=== PATIENT | female | born 1955 | race Caucasian/White ===

== ENCOUNTER → 2023-04-23 08:51 | Outpatient (REF) | payer MEDICARE, SELFPAY | LOC: HWWDC 08:51 | PROVIDERS: ATTENDING PHYSICIAN Obstetrics & Gynecology; FAMILY PHYSICIAN Family Medicine | DX: Z12.31 Encounter for screening mammogram for malignant neoplasm of breast (principal) | CPT/HCPCS: 77063; 77067 ==

== ENCOUNTER → 2024-04-25 11:27 | Outpatient (REF) | payer MEDICARE, SELFPAY | LOC: HWRAD 11:27 | PROVIDERS: ATTENDING PHYSICIAN Obstetrics & Gynecology; FAMILY PHYSICIAN Family Medicine | DX: Z12.31 Encounter for screening mammogram for malignant neoplasm of breast (principal); Z78.0 Asymptomatic menopausal state | CPT/HCPCS: 77063; 77067; 77080 ==

== ENCOUNTER → 2024-06-13 12:07 | Outpatient (REF) | payer MEDICARE, SELFPAY | LOC: PAVMRI 12:07 | PROVIDERS: ATTENDING PHYSICIAN Physical Medicine & Rehabilitation; FAMILY PHYSICIAN Family Medicine | DX: M54.16 Radiculopathy, lumbar region (principal) | CPT/HCPCS: 72148 ==

== ENCOUNTER → 2024-08-17 09:36 | Outpatient (REF) | payer MEDICARE, SELFPAY | LOC: HWCARD 09:36 | PROVIDERS: ATTENDING PHYSICIAN Physical Medicine & Rehabilitation; FAMILY PHYSICIAN Family Medicine | DX: Z01.818 Encounter for other preprocedural examination (principal) | CPT/HCPCS: 93005 ==

== ENCOUNTER → 2024-12-14 08:08 | Outpatient (REF) | payer MEDICARE, SELFPAY | LOC: HWRCS 08:08 | PROVIDERS: ATTENDING PHYSICIAN Internal Medicine Cardiovascular Disease; FAMILY PHYSICIAN Family Medicine | DX: R94.31 Abnormal electrocardiogram [ECG] [EKG] (principal); R00.2 Palpitations | CPT/HCPCS: 93306 ==

== ENCOUNTER → 2024-12-20 07:13 | Outpatient (REF) | payer MEDICARE, SELFPAY | LOC: HWRCS 07:13 | PROVIDERS: ATTENDING PHYSICIAN Internal Medicine Cardiovascular Disease; FAMILY PHYSICIAN Family Medicine | DX: R94.31 Abnormal electrocardiogram [ECG] [EKG] (principal); R00.2 Palpitations; E78.2 Mixed hyperlipidemia | CPT/HCPCS: 78452; 93017; A9500; J2785 ==

== ENCOUNTER 2025-02-05 13:11 | Emergency (ER) | payer MEDICARE, SELFPAY ==
[2025-02-05 13:21] VITALS: BP 163/86
--- NOTE | 2025-02-05 15:25 | ED.GENMED ---
History of Present Illness
General
Chief Complaint: Heart Rate Problem
Source: patient
Exam Limitations: none
Time Seen by Provider: 02/05/25 15:01
History of Present Illness
History of Present Illness:
69-year-old female PAF follow Dr. Grimes not on any meds believes she went into A-fib early in the morning woke her from her sleep with palpitations no chest pain or shortness of breath no fever or chills symptoms have persisted through the day drink
socially not to excess
Past History
Past History
ED Past Medical History: Hypercholesterolemia and Other (One kidney)
ED Past Surgical History: Gynecological (Hysterectomy)
Social History
Tobacco: Former smoker
Alcohol: Occasional
Personal:
Living: with family
Phy Exam
Physical Exam
Physical Exam:
Physical Exam
General: no apparent distress, not acutely ill
Neck: No JVD
Heart: Tachycardic
Lungs: no acute respiratory distress. clear bilaterally
Neuro: alert and oriented. no focal neurological deficits
Skin: no rash
Psychiatric: well kept. interactive and cooperative
Extremities: no edema. no calf tenderness.
Course
Orders/Labs/Results
Orders:
Orders
02/05/25 13:12
EKG [Electrocardiogram (*1)] Urgent
Reason for Study: Palpitations
EKG- Treatment ONCE
02/05/25 15:13
IV Insert/Care/Rem.- Treatment PRN
Diltiazem HCl [Cardizem] 25 mg IV NOW STA
02/05/25 15:14
Diltiazem 125 mg/125 ml Nss [Cardizem] 125 mg in 125 ml IV NOW
Initial dose in mg/hr, then titrate:: 5
Titrate to keep:: Heart rate 80-100 bpm
Titrate by mg/hr:: 5 mg/hr
Frequency of titrations (minutes):: 15
Maximum dose in mg/hr:: 15
02/05/25 16:14
Complete Blood Count/With Diff Urgent
Comprehensive Metabolic Panel Urgent
Magnesium Urgent
TSH Urgent
02/05/25 17:17
Diltiazem Extended Release [Cardizem Cd] 120 mg PO NOW STA
02/05/25 17:17
Apixaban [Eliquis] 5 mg PO NOW STA
Abnormal Lab Results
02/05/25
16:14
MCH 31.9 H pg
(27.0-31.0)
MCHC 32.9 L g/dL
(33.0-37.0)
Absolute Monos (auto) 0.7 H 10^3/uL
(0.1-0.6)
Lymphocytes % 18.3 L %
(20.5-51.1)
Monocytes % 9.8 H %
(1.7-9.3)
Chloride 108 H mmol/L
(98-107)
BUN 25 H mg/dl
(7-17)
Glucose 100 H mg/dl
(70-99)
Calcium 10.3 H mg/dl
(8.4-10.2)
02/05/25 16:14
02/05/25 16:14
Vital Signs
Initial and Last Documented VS:
Initial Vital Signs
Temp Pulse Resp BP Pulse Ox
97.8 F 128 16 163/86 95
02/05/25 13:21 02/05/25 13:21 02/05/25 13:21 02/05/25 13:21 02/05/25 13:21
Last Documented Vital Signs
Temp Pulse Resp BP Pulse Ox
97.8 F 70 16 142/105 100
02/05/25 13:21 02/05/25 16:30 02/05/25 16:33 02/05/25 16:14 02/05/25 16:33
*Pulse Oximetry
SaO2: 95
Oxygen Mode of Delivery: Room air
Patient hypoxic: no
*Critical Care Note
Total Time (30-74mins, 75-104mins- exclusive of procedures): 30
Update Note
Update Note:
Update labs are noted, patient is a rate controlled A-fib in the 70s feels much better reviewed disposition options she is still on IV Cardizem No. 1 would be admission, politely declined states she has a bad back does not want to sleep in the
hospital bed, #2 DC cardioversion now again politely declined, #3 shared decision making we sent home with Cardizem and Eliquis cardiology follow-up, message sent to on-call director funds development for her group
ED Attending Note
-
Portions of this chart may have been created with voice recognition software.� Occasional wrong word or��sound alike� substitutions may have occurred due to the inherent limitations of voice recognition software.
Discharge Plan
Departure
Patient Disposition: Home (Routine Discharge)
Date of Disposition: 02/05/25
Time of Disposition: 17:19
Patient with high blood pressure during this ER visit?: No
Condition: Good
Discharge Problem:
Atrial fibrillation
Instructions: Atrial Fibrillation (DC)
Prescriptions:
New
diltiazem HCl [Cardizem CD] 120 mg capsule,extended release 24hr
120 mg PO DAILY Qty: 30 0RF
Eliquis 5 mg tablet
5 mg PO BID Qty: 30 0RF
No Action
cefdinir [Omnicef] 300 MG capsule
300 mg PO Q12H Qty: 20 0RF
Referrals:
Jose Grimes MD [Active, Cardiology] - Next open appointment
Freddy Hernadez MD [Family Provider, Family Practice]
Interventions
Interventions:
*Risk Screen - Suicide Last Done: 02/05/25 13:26
*General Assessment Last Done: 02/05/25 16:33
*Neglect/Abuse Screening Last Done: 02/05/25 13:26
*ED- Fall Risk Assessment Last Done: 02/05/25 16:33
*ED COVID-19 Vaccine History Last Done: 02/05/25 16:33
*ED Influenza Vaccine History Last Done: 02/05/25 16:33
ED- Cardiac Assessment Last Done: 02/05/25 16:33
ED- Pulmonary Assessment Last Done: 02/05/25 16:33
Discharge Date and Time
Print Language: GREEK
[2025-02-05 16:14] VITALS: BP 142/105
[2025-02-05] MEDS: CARDIZEM 25 MG IV (16:14)
[2025-02-05] MEDS: CARDIZEM 125 IV (16:16)
[2025-02-05 16:25] LABS: Hematocrit 45.0 % (37.0-47.0); Hemoglobin 14.8 g/dL (12.0-16.0); Mean Corp Hgb Conc. 32.9 g/dL (33.0-37.0); Mean Corpuscular Volume 97.0 fL (81.0-99.0); Nucleated Red Blood Cells % 0 %; Platelet Count 274 10^3/uL (130-400); Red Cell Dist. Width 13.0 % (11.5-14.5)
[2025-02-05 16:33] VITALS: BMI 27.8
[2025-02-05 16:39] LABS: ALT (SGPT) 28 U/L (0-35); AST (SGOT) 21 U/L (14-36); Albumin 4.8 g/dl (3.5-5.0); Alkaline Phosphatase 79 U/L (38-126); Blood Urea Nitrogen 25 mg/dl (7-17); Calcium 10.3 mg/dl (8.4-10.2); Carbon Dioxide 26 mmol/L (22-30); Chloride 108 mmol/L (98-107); Estimated Creatinine Clearance 57 ml/min; Glucose 100 mg/dl (70-99); Magnesium 1.9 mg/dl (1.6-2.3); Potassium 4.0 mmol/L (3.5-5.1); Sodium 141 mmol/L (135-145); Total Protein 7.2 g/dl (6.3-8.2); eGFR > 60.00
[2025-02-05 17:00] VITALS: BP 134/69
[2025-02-05 17:09] LABS: TSH 3.08 uIU/ml (0.47-4.68)
[2025-02-05] MEDS: CARDIZEM CD 120 MG PO (17:48)
[2025-02-05] MEDS: ELIQUIS 5 MG PO (17:49)
== END 2025-02-05 18:04 | disposition home or self-care (01) ==
LOC: EMR 13:11
PROVIDERS: EMERGENCY PHYSICIAN Emergency Medicine; FAMILY PHYSICIAN Family Medicine
DX: I48.0 Paroxysmal atrial fibrillation (principal); E78.00 Pure hypercholesterolemia, unspecified; Z79.01 Long term (current) use of anticoagulants; Z87.891 Personal history of nicotine dependence
CPT/HCPCS: 99284; 96374; 96376; 80053; 83735; 84443; 85025; 93005